=== PATIENT | male | born 1970 ===

== ENCOUNTER 2017-09-04 06:52 | Day surgery (SDC) | payer BC ==
[2017-08-28 09:29] VITALS: BMI 29.4
[2017-09-04] MEDS ORDERED: Midazolam 2 MG/2 ML VIAL ONE ×2 (07:30→09:45)
[2017-09-04] MEDS ORDERED: Lidocaine 2% Inj (20ml) ONE (07:30)
[2017-09-04] MEDS ORDERED: HEPARIN SODIUM/NS 2,000 ML IV ONE (07:31)
[2017-09-04] MEDS ORDERED: Iodixanol 320 MG/ML 200 ML BOTTLE IV ONE (07:31)
[2017-09-04 08:08] LABS: BASO # 0.08 K/mm3 (0.0-2.0); EOS # 0.2 (0.0-0.7); EOS % 2.9 % (1.5-5.0); GRAN # 5.54 (1.4-6.5); GRAN % 67.5 % (50.0-68.0); HEMOGLOBIN 15.2 g/dL (14.0-18.0); LYMPH # 1.7 (1.2-3.4); LYMPH % 20.4 % (22.0-35.0); MEAN CELL VOLUME 82.6 fl (80.0-105.0); MEAN CORPUSCULAR HEMOGLOBIN 26.7 pg (25.0-35.0); MEAN CORPUSCULAR HGB CONC 32.3 g/dl (31.0-37.0); MEAN PLATELET VOLUME 10.6 fl (7.0-11.0); MONO # 0.7 (0.1-0.6); MONO % 8.2 % (1.0-6.0); RBC 5.7 10^6/uL (3.5-6.1); RED CELL DISTRIBUTION WIDTH 14.4 % (11.5-14.5); WHITE BLOOD COUNT 8.2 10^3/ul (4.5-11.0)
[2017-09-04 08:17] VITALS: RESP 18
[2017-09-04 08:19] LABS: BLOOD UREA NITROGEN 18 mg/dL (7-21); GFR AFRICAN-AMERICAN > 60; GFR NON-AFRICAN AMERICAN > 60
[2017-09-04 08:27] LABS: INR 0.97 (0.93-1.08); PARTIAL THROMBOPLASTIN TIME 32.3 Seconds (25.1-36.5); PROTHROMBIN TIME 11.2 SECONDS (9.4-12.5)
[2017-09-04 10:45] VITALS: TEMP 97.6
[2017-09-04] MEDS ORDERED: Sodium Chloride 0.9% 1,000 ML IV SCH (11:45)
[2017-09-04 11:54] VITALS: O2SAT 98
[2017-09-04 12:25] VITALS: BP 144/82; PULSE 71
--- NOTE | 2017-09-04 18:07 | CARD ---
APPROVED REPORT EKG Measurement Heart [id number] <Conclusion> Normal sinus rhythm Normal ECG
--- NOTE | 2017-09-04 19:41 | CARDCATH ---
PROCEDURE DATE: 09/04/2017 HISTORY: The patient is a 47-year-old male, who presents with exertional chest pain, palpitations. His past medical history includes documented nonobstructive CAD as well as paroxysmal atrial fibrillation. He also suffers from hypercholesterolemia and hypertriglyceridemia. Because of his abnormal stress test, cardiac catheterization was recommended. PROCEDURE: Left heart catheterization with coronary arteriography and left ventriculogram. The right femoral artery was cannulated with a 6-Prydeinig sheath. There were no complications. I performed moderate sedation which included the presence of an independent trained observer that assisted in monitoring the patient's level of consciousness and physiologic status. After administration of Versed and fentanyl, my intra-service time was 15 minutes. The findings on catheterization revealed a left main artery that was unremarkable. The RCA was a dominant vessel and revealed intimal irregularities without significant stenoses. The LAD revealed diffuse atherosclerosis. In the second diagonal vessel, which was a small vessel, there is a 90% ostial stenoses. In the circumflex obtuse marginal branch, in the midportion, there was a 50% eccentric stenosis noted. LV function was visualized in the BAH projection. In the BAH projection, wall motion is within normal limits. Estimated ejection fraction is 60%. Angio-Seal was used to close the femoral artery site. The patient tolerated the procedure well. In summary, the procedure revealed single-vessel CAD of the circumflex artery with a 50% obtuse marginal branch lesion. There is a 90% stenoses in a small diagonal vessel. Given these findings, the patient needs to undergo an aggressive cardiac risk reduction program. Stricter control of his cholesterol would be appropriate. His dietary changes would improve his overall cardiac risk. Brad Martins MD
== END 2017-09-04 15:00 | disposition home or self-care (01) ==
LOC: CATH 06:52
PROVIDERS: ATTEND Internal Medicine Cardiovascular Disease
DX: I25.10 Atherosclerotic heart disease of native coronary artery without angina pectoris (principal); I48.0 Paroxysmal atrial fibrillation; E78.1 Pure hyperglyceridemia; E78.00 Pure hypercholesterolemia, unspecified; R94.39 Abnormal result of other cardiovascular function study
CPT/HCPCS: 36415; 80048; 85025; 85610; 85730; 86850; 86900; 93005; 93458; 99152; C1760; C1769; C1887; C2629; J1644; J2250; J3010; J7040